=== PATIENT | female | born 1980 | race Caucasian/White ===

== ENCOUNTER 2017-09-26 18:06 | Emergency (ER) | payer SELFPAY ==
[2017-09-26 18:28] VITALS: RESP 20; O2SAT 99
--- NOTE | 2017-09-26 19:32 | C.PDOC ---
History Of Present Illness 37 year old female, with no significant past medical history, presents to the ED for evaluation of left lower quadrant abdominal pain which began yesterday. Patient states her pain is intermittent and feels like a "tight" and "squeezing " sensation. She states her last menstrual period was 11/3 and her at-home test was positive. Patient reports slight nausea but denies vomiting. Patient also denies vaginal bleeding vaginal discharge, dysuria, hematuria, and urinary frequency at this time. Time Seen by Provider: 09/26/17 18:56 Chief Complaint (Nursing): Abdominal Pain History Per: Patient History/Exam Limitations: no limitations Onset/Duration Of Symptoms: Hrs, Intermittent Episodes Current Symptoms Are (Timing): Still Present Location Of Pain/Discomfort: LLQ Radiation Of Pain To:: None Quality Of Discomfort: "Pain" Associated Symptoms: Nausea. denies: Vomiting, Urinary Symptoms Additional History Per: Patient Abnormal Vaginal Bleeding: No : 2 Para: 1 Past Medical History Reviewed: Historical Data, Nursing Documentation, Vital Signs Vital Signs: Last Vital Signs Temp 97.8 F 09/26/17 18:22 Pulse 101 H 09/26/17 18:22 Resp 20 09/26/17 18:22 BP Pulse Ox 99 09/26/17 21:10 - Medical History PMH: No Chronic Diseases Surgical History: No Surg Hx Family History: States: Unknown Family Hx - Social History Hx Alcohol Use: No Hx Substance Use: No - Immunization History Hx Tetanus Toxoid Vaccination: No Hx Influenza Vaccination: No Hx Pneumococcal Vaccination: No Review Of Systems Gastrointestinal: Positive for: Nausea, Abdominal Pain (left lower quadrant ). Negative for: Vomiting Genitourinary: Negative for: Dysuria, Frequency, Hematuria, Vaginal Discharge, Vaginal Bleeding Physical Exam - Physical Exam Appears: Non-toxic, No Acute Distress Skin: Normal Color, Warm, Dry Head: Atraumatic, Normacephalic Eye(s): bilateral: Normal Inspection Oral Mucosa: Moist Neck: Supple Chest: Symmetrical, No Deformity, No Tenderness Cardiovascular: Rhythm Regular, No Murmur Respiratory: Normal Breath Sounds, No Rales, No Rhonchi, No Wheezing Gastrointestinal/Abdominal: Soft, Tenderness (mild, to left lower quadrant on palpation ), No Guarding, No Rebound Extremity: Normal ROM, Capillary Refill (less than 2 seconds ) Neurological/Psych: Oriented x3, Normal Speech, Normal Cognition Gait: Steady ED Course And Treatment - Laboratory Results Result Diagrams: 09/26/17 19:38 09/26/17 19:21 Lab Interpretation: No Acute Changes (HCG 25768.0) O2 Sat by Pulse Oximetry: 99 (on RA) Pulse Ox Interpretation: Normal - CT Scan/US US first Trimester Other Rad Studies (CT/US): Interpreted By Me, Read By Radiologist, Radiology Report Reviewed CT/US Interpretation: EXAM: US First Trimester, Transabdominal. CLINICAL HISTORY: 37 years old, female; Pain; complicated by abdominal or pelvic pain; Lower; First. trimester; Gestational age or lmp: 11-3 -17; ; Additional info: Llq pain. TECHNIQUE: Real-time transabdominal obstetrical ultrasound of the maternal pelvis and a first trimester. with image documentation. COMPARISON: No relevant prior studies available. FINDINGS: Gestation: Gestational sac. Yolk sac. No pole. Mean sac diameter of 1.18 cm, correlating with. gestational age of 5 weeks 2 days. Uterus/cervix: 1.5 x 1.1 x 1.5 cm uterine mass. No subchorionic hemorrhage. No cervical dilatation. or effacement. Nabothian cysts. Ovaries: RIGHT ovary: Normal. LEFT ovary: Probable 1.7 x 1.4 x 1.3 cm corpus luteal cyst. No. adnexal masses. Free fluid: No significant free fluid. IMPRESSION: 1. Intrauterine , of uncertain viability. Recommend followup. 2. Probable fibroid. 3. Incidental/non-acute findings are described above. US , transvaginal Other Rad Studies (CT/US): Interpreted By Me, Read By Radiologist, Radiology Report Reviewed CT/US Interpretation: EXAM: US First Trimester, Transabdominal. CLINICAL HISTORY: 37 years old, female; Pain; complicated by abdominal or pelvic pain; Lower; First. trimester; Gestational age or lmp: 11-3 -17; ; Additional info: Llq pain. TECHNIQUE: Real-time transabdominal obstetrical ultrasound of the maternal pelvis and a first trimester. with image documentation. COMPARISON: No relevant prior studies available. FINDINGS: Gestation: Gestational sac. Yolk sac. No pole. Mean sac diameter of 1.18 cm, correlating with. gestational age of 5 weeks 2 days. Uterus/cervix: 1.5 x 1.1 x 1.5 cm uterine mass. No subchorionic hemorrhage. No cervical dilatation. or effacement. Nabothian cysts. Ovaries: RIGHT ovary: Normal. LEFT ovary: Probable 1.7 x 1.4 x 1.3 cm corpus luteal cyst. No. adnexal masses. Free fluid: No significant free fluid. IMPRESSION: 1. Intrauterine , of uncertain viability. Recommend followup. 2. Probable fibroid. 3. Incidental/non-acute findings are described above. Progress Note: Bloodwork, Urinalysis, Pelvic Ultrasound ordered and reviewed. Reevaluation Time: 21:14 Reassessment Condition: Improved Disposition Counseled Patient/Family Regarding: Studies Performed, Diagnosis, Need For Followup - Disposition Referrals: [facility] [Outside] [facility] [Outside] Disposition: HOME/ ROUTINE Disposition Time: 21:20 Condition: STABLE Instructions: (ED), Ovarian Cyst (ED) Forms: [employer] (French) Print Language: SETS[place] - Clinical Impression Clinical Impression: Early stage of , Corpus luteum cyst of left ovary - Scribe Statement The provider has reviewed the documentation as recorded by the Scribe (Rosa Castaneda) Provider Attestation: All medical record entries made by the Scribe were at my direction and personally dictated by me. I have reviewed the chart and agree that the record accurately reflects my personal performance of the history, physical exam, medical decision making, and the department course for this patient. I have also personally directed, reviewed, and agree with the discharge instructions and disposition.
[2017-09-26 19:36] LABS: RBC URINE 1 /hpf (0-3); URINE BILIRUBIN NEGATIVE (NEGATIVE); URINE BLOOD NEGATIVE (NEGATIVE); URINE COLOR Yellow (YELLOW); URINE GLUCOSE (UA) NORMAL (Normal); URINE KETONE NEGATIVE (NEGATIVE); URINE LEUKOCYTE ESTERASE TRACE Leu/uL (Negative); URINE PROTEIN NEGATIVE (NEGATIVE); URINE UROBILINOGEN NORMAL mg/dL (0.2-1.0); WBC URINE 2 /hpf (0-5)
[2017-09-26 19:43] LABS: ALB/GLOB RATIO 1.4 (1.0-2.1); ALKALINE PHOSPHATASE 71 U/L (38-126); ALT/SGPT 39 U/L (9-52); AST/SGOT 19 U/L (14-36); BILIRUBIN,TOTAL 0.3 mg/dL (0.2-1.3); BLOOD UREA NITROGEN 13 mg/dL (7-17); CALCIUM 8.5 mg/dl (8.6-10.4); CARBON DIOXIDE 27 mmol/L (22-30); CHLORIDE 102 mmol/L (98-107); GFR AFRICAN-AMERICAN > 60; GLUCOSE,RANDOM 92 mg/dL (65-105); POTASSIUM 4.3 mmol/L (3.6-5.2); SODIUM 138 mmol/L (132-148); TOTAL PROTEIN 7.4 g/dL (6.3-8.3)
[2017-09-26 19:47] LABS: BASO # 0.1 K/uL (0.0-0.2); BASO % 0.8 % (0.0-2.0); EOS # 0.2 K/uL (0.0-0.7); EOS % 1.4 % (0.0-4.0); HEMATOCRIT 36.1 % (34.0-47.0); LYMPH # 4.1 K/uL (1.0-4.3); MEAN CELL VOLUME 90.9 fL (81.0-99.0); MEAN CORPUSCULAR HEMOGLOBIN 29.8 pg (27.0-31.0); MEAN CORPUSCULAR HGB CONC 32.8 g/dL (33.0-37.0); MEAN PLATELET VOLUME 8.4 fL (7.2-11.7); MONO # 0.6 K/uL (0.0-0.8); MONO % 5.6 % (0.0-10.0); RED CELL DISTRIBUTION WIDTH 13.5 % (11.5-14.5); WHITE BLOOD COUNT 11.2 K/uL (4.8-10.8)
--- NOTE | 2017-09-26 21:05 | US ---
EXAM: US First Trimester, Transabdominal CLINICAL HISTORY: 37 years old, female; Pain; complicated by abdominal or pelvic pain; Lower; First trimester; Gestational age or lmp: 11-3-17; ; Additional info: Llq pain TECHNIQUE: Real-time transabdominal obstetrical ultrasound of the maternal pelvis and a first trimester with image documentation. COMPARISON: No relevant prior studies available. FINDINGS: Gestation: Gestational sac. Yolk sac. No pole. Mean sac diameter of 1.18 cm, correlating with gestational age of 5 weeks 2 days. Uterus/cervix: 1.5 x 1.1 x 1.5 cm uterine mass. No subchorionic hemorrhage. No cervical dilatation or effacement. Nabothian cysts. Ovaries: RIGHT ovary: Normal. LEFT ovary: Probable 1.7 x 1.4 x 1.3 cm corpus luteal cyst. No adnexal masses. Free fluid: No significant free fluid. IMPRESSION: 1. Intrauterine , of uncertain viability. Recommend followup. 2. Probable fibroid. 3. Incidental/non-acute findings are described above. EXAM: US , Transvaginal CLINICAL HISTORY: 37 years old, female; Pain; complicated by abdominal or pelvic pain; Lower; First trimester; Gestational age or lmp: 11-3-17; ; Additional info: Llq pain TECHNIQUE: Real-time transvaginal obstetrical ultrasound of the maternal pelvis and a first trimester with image documentation. Transvaginal imaging was used for better evaluation of the fetus and adnexa. COMPARISON: No relevant prior studies available. FINDINGS: Gestation: Gestational sac. Yolk sac. No pole. Mean sac diameter of 1.18 cm, correlating with gestational age of 5 weeks 2 days. Uterus/cervix: 1.5 x 1.1 x 1.5 cm uterine mass. No subchorionic hemorrhage. No cervical dilatation or effacement. Nabothian cysts. Ovaries: RIGHT ovary: Normal. LEFT ovary: Probable 1.7 x 1.4 x 1.3 cm corpus luteal cyst. No adnexal masses. Free fluid: No significant free fluid.
[2017-09-26 21:32] VITALS: BP 130/80; PULSE 100; TEMP 98
== END 2017-09-26 21:32 | disposition home or self-care (01) ==
LOC: C.ER 18:06
DX: O34.81 Maternal care for other abnormalities of pelvic organs, first trimester (principal); N83.12 Corpus luteum cyst of left ovary; Z3A.01 Less than 8 weeks gestation of pregnancy

== ENCOUNTER 2018-05-20 15:10 | Inpatient (IN) | payer OTHER ==
[2018-05-20 17:16] LABS: BASO # 0.1 K/uL (0.0-0.2); BASO % 0.5 % (0.0-2.0); EOS # 0.1 K/uL (0.0-0.7); EOS % 0.6 % (0.0-4.0); LYMPH # 2.8 K/uL (1.0-4.3); LYMPH % 28.5 % (20.0-40.0); MEAN CELL VOLUME 89.9 fL (81.0-99.0); MEAN CORPUSCULAR HEMOGLOBIN 30.7 pg (27.0-31.0); MEAN CORPUSCULAR HGB CONC 34.2 g/dL (33.0-37.0); MEAN PLATELET VOLUME 10.7 fL (7.2-11.7); MONO # 0.6 K/uL (0.0-0.8); MONO % 5.8 % (0.0-10.0); NEUT # 6.3 K/uL (1.8-7.0); NEUT % 64.6 % (50.0-75.0); RBC 3.91 Mil/uL (3.80-5.20); RED CELL DISTRIBUTION WIDTH 15.2 % (11.5-14.5); WHITE BLOOD COUNT 9.7 K/uL (4.8-10.8)
[2018-05-20 17:28] LABS: ALB/GLOB RATIO 1.1 (1.0-2.1); ALBUMIN 3.8 g/dL (3.5-5.0); ALT/SGPT 18 U/L (9-52); AST/SGOT 20 U/L (14-36); BILIRUBIN,DIRECT 0.3 mg/dL (0.0-0.4); BLOOD UREA NITROGEN 14 mg/dL (7-17); CALCIUM 9.2 mg/dl (8.6-10.4); GFR AFRICAN-AMERICAN > 60; GFR NON-AFRICAN AMERICAN > 60; URIC ACID 4.9 mg/dL (2.2-7.5)
[2018-05-20 17:41] LABS: PROTHROMBIN TIME 11.1 SECONDS (9.7-12.2)
[2018-05-20 17:42] LABS: SQUAMOUS EPITHIAL 4 /hpf (0-5); URINE BACTERIA RARE (<OCC); URINE BILIRUBIN NEGATIVE (NEGATIVE); URINE BLOOD NEGATIVE (NEGATIVE); URINE CLARITY Hazy (Clear); URINE COLOR Yellow (YELLOW); URINE GLUCOSE (UA) NORMAL (Normal); URINE LEUKOCYTE ESTERASE NEG Leu/uL (Negative); URINE PROTEIN 1+ mg/dL (NEGATIVE); URINE UROBILINOGEN NORMAL mg/dL (0.2-1.0)
--- NOTE | 2018-05-20 17:50 | OBHP ---
Datetime: 05/20/2018 16:32 IP Adm Impression: Term, intrauterine ; No Active Labor; Intact Membranes IP Admit Plan: Observation/Evaluation Admit Comment, IP Provider: 38 yo female with an IUP at 39 /7 weeks Sent from clinic with Diagnosis of Elevated BP and to R/O Preeclampsia, AMA NST reactive/Ocassional contractions and mild Unfavorable cervix BP's in here bet 130's/High 80's to 140's to 90's. Denies CABEZAS, BV or EP PIH labs ordered as well as admitting labs Will admit for IOL and Delivery D/W patient and her the possible Preeclampsia findings with need for delivery Also discussed possible need for Magnesium Sulfate for seizure prophylaxis and verbalized understa nding. See Orders Pelvic Type - PN: Adequate Extremities - PN: Abnormal Abdomen - PN: Normal Back - PN: Normal Breast - PN: Not Done Lungs - PN: Normal Heart - PN: Normal Thyroid - PN: Normal Neurologic - PN: Normal HEENT - PN: Normal General - PN: Normal Presentation-Admit: Vertex FHR - Baseline A Provider: 130 Membranes, Provider: Intact Contraction Comments Provider: Ocassional Comments, ACOG Physical Exam: +2/4 pitting Edema DTR's +2/4 bilaterally Gestation - Est Wks by US: 39 3/7 EGA AdmitDate IP: 39.3 IP Chief Complaint: Uterine contractions; Signs/Symptoms Gestational HTN NICHD Variability Prov Fetus A: Moderate 6-25bpm NICHD Accel Fetus A IP Provider: 10X10 FHR Category Provider Fetus A: Category I NICHD Decel Fetus A IP Provider: None Dilatation, Provider: 1 Effacement, Provider: 50 Station, Provider: floating Genitourinary Exam: Normal DTRs - PN: Normal
--- NOTE | 2018-05-20 18:13 | OBADHP ---
Datetime: 05/20/2018 17:58 Admit Comment, IP Provider: 38 yo female with an IUP at 39 /7 weeks Sent from clinic with Diagnosis of Elevated BP and to R/O Preeclampsia, AMA BP's here bet 130's/80's and 140's / 90's. Denies CABEZAS, BV or EP. DTR's WNL PIH lab ordered as well as admitting labs NST reactive/Ocassional contractions and mild Unfavorable cervix Discussed with patient the suspicion for preeclampsia and it consequences and recomendation for de livery. Will admit and start Cervidil for induction of labor Anticipate vaginal delivery Discussed with patient and her Partner the POC including the possibility of requiring Magnesium Benson lfate for Seizure prophylaxix and they both verbalized understanding. Pelvic Type - PN: Adequate Extremities - PN: Abnormal Abdomen - PN: Normal Back - PN: Normal Breast - PN: Not Done Lungs - PN: Normal Heart - PN: Normal Thyroid - PN: Normal Neurologic - PN: Normal HEENT - PN: Normal General - PN: Normal Presentation-Admit: Vertex Membranes, Provider: Intact Contraction Comments Provider: Irregular Gestation - Est Wks by US: 39 3/7 Vital Signs Provider: Reviewed IP Chief Complaint: Uterine contractions; Signs/Symptoms Gestational HTN Dilatation, Provider: 1 Effacement, Provider: 50 Station, Provider: flt Genitourinary Exam: Normal DTRs - PN: Normal EGA AdmitDate IP: 39.3 IP Adm Impression: Term, intrauterine ; Intact Membranes IP Admit Plan: Admit to unit; Initiate labor protocol Datetime: 05/20/2018 16:32 FHR - Baseline A Provider: 130 Comments, ACOG Physical Exam: +2/4 pitting Edema DTR's +2/4 bilaterally IP Hx Assessment: Records Reviewes NICHD Variability Prov Fetus A: Moderate 6-25bpm NICHD Accel Fetus A IP Provider: 10X10 FHR Category Provider Fetus A: Category I NICHD Decel Fetus A IP Provider: None
[2018-05-20] MEDS ORDERED: Lactated Ringer's 1,000 ML IV SCH (18:45)
[2018-05-20] MEDS: Lactated Ringer's 1,000 ML IV SCH (19:00)
[2018-05-21] MEDS: Nalbuphine HCL 10 mg/ml Ampule IVP SCH ×2 (00:55→04:55)
[2018-05-21] MEDS ORDERED: Nalbuphine HCL 10 mg/ml Ampule ONE (00:56)
[2018-05-21] MEDS: Lactated Ringer's 1,000 ML IV SCH (03:00)
--- NOTE | 2018-05-21 10:39 | OBPN ---
Datetime: 05/21/2018 10:16 IP Progress Plan Other: Cervical ripening IP Progress Impression: Normal progression of labor IP Procedures: Sterile Vag Exam IP Progress Plan: Continue present management; Augmentation; Anticipate Vaginal Delivery Membranes, Provider: Intact Contraction Comments Provider: 1-2 IP Progress Note Comment: Patient received in LDR#1, seen and examined at 0915 hours. Patient in goo d spiritis. Reports (+)FM; denies pain of contracitons, pain scale 2/10. Cervical exam: as above; posterior, medium consistency. Assessment: 38 y.o. P1031, 39w 4d, S/P cervidil x 1 with good response. Previous vag del 18 years ago, 8 14 lbs. Discussed with patient continued cervical ripening, and possible pitocin. Patient is receptive to epidural for pain relief. It was also explained to patient possibility of secti on if indicated. Patient expressed an understanding and agrees; no questions offered. Category 1 tra cing. Michaeln is clinically stable. Plan: 1) Patient may shower 2) Cytotec 25 micrograms p.o. x 1 3) Re-assess in 4 hours 4) Epidural, upon request 5) Anticipate vaginal delivery Dilatation, Provider: 3 Effacement, Provider: 50 Station, Provider: -3 Datetime: 05/20/2018 17:58 Gestation - Est Wks by US: 39 3/7 Presentation-Admit: Vertex Vital Signs Provider: Reviewed Datetime: 05/20/2018 16:32 FHR - Baseline A Provider: 130 NICHD Accel Fetus A IP Provider: 10X10 FHR Category Provider Fetus A: Category I NICHD Variability Prov Fetus A: Moderate 6-25bpm NICHD Decel Fetus A IP Provider: None
[2018-05-21] MEDS ORDERED: Bupivacaine HCl/FentaNYL Cit 100 ML EPI ONE ×2 (13:30→21:04)
[2018-05-21] MEDS ORDERED: Oxytocin 30 UNIT 30 UNITS/500 ML BAG IV ONE (15:23)
[2018-05-21] MEDS ORDERED: Oxytocin 30 UNIT 30 UNITS/500 ML BAG IV SCH (15:30)
[2018-05-22] MEDS ORDERED: Sodium Citrate/Citric Acid 15 ml Sol PO ONE (03:00)
[2018-05-22] MEDS ORDERED: Oxytocin 20 units in LR 2,000 ML IV ONE (03:09)
[2018-05-22] MEDS ORDERED: cefOXitin IV 2 gm in Saline 2 GM/50 ML BAG IVPB ONE ×2 (03:10→11:57)
[2018-05-22] MEDS: cefOXitin IV 2 gm in Dextrose 2 GM/50 ML BAG IVPB SCH ×3 (03:30→20:04)
[2018-05-22] MEDS ORDERED: Oxytocin 10 Units/ml Inj ONE (03:38)
--- NOTE | 2018-05-22 03:51 | OBPN ---
Datetime: 05/22/2018 03:33 Membranes, Provider: Intact Contraction Comments Provider: 1-2 FHR - Baseline A Provider: 150 Gestation - Est Wks by US: 39w 5d Presentation-Admit: Vertex IP Progress Note Comment: Notified by R.N. of decreased variability on FHR tracing. Patient is S/P 1 Ltre D5Ns. Pavan was evaluated at 0231 hours: received in bed, in right lateral position. Denies he adaches, blurred vision Cervical exam: as above. Pitocin = 8 mUnits Assessment: 38 y.o. P1021, 39w 5d, IOL for elevatied BP: no stigmata of pre-eclampsia. Category I I tracing which improved to Category 1 with scalp stimulation, (+) accelerations; improved variabilit y. This was short-lived. To tihs end, patient counseled on concern re: well-being. Also, arrest of cervical dilatation at 6 cm. To this end, abdominal delivery is recommended. Patient expressed an understanding and agrees. R/B/C discussed; patient's questions were answered. Consents signed, dated , witnessed and placed in chart. Patient is clinically stable. Plan: 1) Mefoxin 2) Abdominal prep and shave 3) Notify anesthesia 4) Notify peds 5) family preservation officer to O.R. FHR Category Provider Fetus A: Category II NICHD Variability Prov Fetus A: Minimal - Undetectable to <5bpm Dilatation, Provider: 6-7 Effacement, Provider: 50 Station, Provider: -3 NICHD Decel Fetus A IP Provider: None Datetime: 05/21/2018 22:48 IP Progress Impression: Normal progression of labor IP Procedures: Sterile Vag Exam IP Progress Plan: Continue present management; Augmentation Vital Signs Provider: Reviewed Vital Signs Provider Details: Labile BPs noted; as well as mildy elevated HR NICHD Accel Fetus A IP Provider: 15X15
[2018-05-22] MEDS ORDERED: Lidocaine 2% MPF (5 ml) Inj ONE ×2 (04:02→04:13)
[2018-05-22] MEDS ORDERED: Morphine 1 mg/ml preservative-free Inj(Duramorph) ONE (04:42)
--- NOTE | 2018-05-22 06:12 | PCM.SURG1 ---
Surgeon's Initial Post Op Note - Surgeon's Notes Surgeon: Melina Garcia MD Press Worker Helper: Jaron Hampton MD Type of Anesthesia: Spinal Anesthesia Administered By: Manolo Cotton DO Pre-Operative Diagnosis: 39 weeks 4 days, non reassuring heart tracing, arrest of cervical dilatation at 6 cm; elevated BPs, advanced maternal age. Operative Findings: Live male infant, ROT, weight 9lb, 's 6/9; cord pH - 6.98. Normal uterus; normal fallopian tubes and ovaries, bilaterally. Right anterolateral sessile myoma 3 x 3 x 3 cm. Post-Operative Diagnosis: Same; leiomyoma Operation Performed: Primary LTCS Specimen/Specimens Removed: Placenta Estimated Blood Loss: EBL {In ML}: 800 (U.O. 500 mL; IVFs 2,500 mL LR, 1st litre with 40 units pitocin. Hemabate 250 micrograms also administered) Blood Products Given: N/A Drains Used: No Drains Post-Op Condition: Good Date of Surgery/Procedure: 05/22/18 Time of Surgery/Procedure: 06:18
[2018-05-22] MEDS ORDERED: DiphenhydrAMINE 50 mg/ml Inj IVP PRN (06:18)
[2018-05-22] MEDS ORDERED: HYDROmorphone 0.5 mg/0.5 ml ISec IVP PRN (06:18)
[2018-05-22] MEDS ORDERED: Oxycodone/Acetaminophen 5/325 mg Tab PO PRN (06:19)
--- NOTE | 2018-05-22 06:34 | OBDS ---
DELIVERY PERSONNEL Delivery Doctor: Amie Garcia MD Scrub Nurse: Macrina Heath Tape Sewer: Mery Velasco RN Anesthesiologist: Dr Cotton MATERNAL INFORMATION Delivery Anesthesia: Spinal Estimated Blood Loss (ml): 800 Placenta Cultured: Yes Provider Comments: Primary LTCS with atraumatic delivery of live male infant, weight 9lb, ROT positi on, 's 6/9. Incidental finding of righ tanterolateral sessile myoma, 3 x 3 x 3 cm. Patient tolerated procedure well. Transferred to RR in stable. ccondition. Infant to well baby keyonna sery - also in stable. condition EBL 800 mL U.O. 450 mL IVFs 2, 500 mL LR LABOR SUMMARY EDC: 05/24/2018 00:00 No. Babies in Womb: 1 Labor Anesthesia: Epidural LABOR INFORMATION Reason for Induction: Other Reason for Induction Other: elevated BP Onset of Labor: 05/21/2018 22:35 Cervical Ripening Agents: Cervidil (Annotations: removed) Oxytocin: Augmentation Group B Beta Strep: Negative Steroids Given: None Reason Steroids Not Administered: Not Applicable STAGES OF LABOR Stage 3 hrs: 0 Stage 3 min: 1 Total Time in Labor hrs: 6 Total Time in Labor min: 19 CSECTION DELIVERY Primary Indication: Nonreassuring Status Other Primary Indication: elevated BP Secondary Indication: arrest of cervical dialation CSection Urgency: Non Elective CSection Incidence: Primary Labor: Labor Elective: Nonelective CSection Incision: Lower Uterine Transverse BABY A INFORMATION Delivery Date/Time: 05/22/2018 04:53 Method of Delivery: Born in Route : No : N/A Forceps: N/A Vacuum Extraction: N/A Shoulder Dystocia : No SHOULDER DYSTOCIA BABY A Infant Delivery Date/Time: 05/22/2018 04:53 PRESENTATION/POSITION BABY A Presentation: Cephalic Cephalic Presentation: Vertex Vertex Position: Left Occipital Anterior Breech Presentation: N/A PLACENTA INFORMATION BABY A Placenta Delivery Time : 05/22/2018 04:54 Placenta Method of Delivery: Manual Removal Placenta Status: Delivered SCORES BABY A Heart Rate 1 min: >100 bpm Resp Effort 1 min: Slow, Irregular Reflex Irritability 1 min: Grimace Muscle Tone 1 min: Some Flexion of Extremities Color 1 min: Body [place], Extremities Blue Resuscitation Effort 1 min: Tactile Stimulation SCORE 1 MIN: 6 Heart Rate 5 min: >100 bpm Resp Effort 5 min: Good Cry Reflex Irritability 5 min: Cough or Sneeze or Pulls Away Muscle Tone 5 min: Active Motion Color 5 min: Body [place], Extremities Blue Resuscitation Effort 5 min: N/A SCORE 5 MIN: 9 INFANT INFORMATION BABY A Gestational Age at Delivery: 39.5 Gestational Status: Term Outcome : Liveborn Condition : Stable Sex: Male IDENTIFICATION/MEDS BABY A ID Band Number: [id number] ID Band Location: Left Leg; Left Arm Sensor Applied: Yes Sensor Number: [id number] Sensor Location : Cord Clamp Vitamin K Given : Not Given Erythromycin Given: Not Given WEIGHT/LENGTH BABY A Infant Birthweight (gms): 4080 Weight (lb): 9 Infant Weight (oz): 0 Infant Length Inches: 20.50 Infant Length cms: 52.1 CORD INFORMATION BABY A No. Cord Vessels: 3 Cord Blood Taken: Yes Infant Suction: Mouth; Nose ASSESSMENT BABY A Complications: Decreased Variability Physical Findings at Delivery: Within Normal Limits Infant Respirations: Appears Normal [employer] Coordinator/ALS Called : No Infant Care By: Shannan Gonzalez RN Transferred To: Remains with Mother RESUSCITATION BABY A Resuscitation Effort: PPV/NCPAP
[2018-05-22 09:02] LABS: HEMOGLOBIN 11.6 g/dL (11.0-16.0); MEAN CELL VOLUME 90.9 fL (81.0-99.0); MEAN CORPUSCULAR HEMOGLOBIN 30.6 pg (27.0-31.0); MEAN CORPUSCULAR HGB CONC 33.7 g/dL (33.0-37.0); MEAN PLATELET VOLUME 10.2 fL (7.2-11.7); RBC 3.8 Mil/uL (3.80-5.20); RED CELL DISTRIBUTION WIDTH 15.2 % (11.5-14.5)
[2018-05-22 09:06] LABS: WHITE BLOOD COUNT 15.4 K/uL (4.8-10.8)
[2018-05-22 09:11] LABS: PROTHROMBIN TIME 10.8 SECONDS (9.7-12.2)
[2018-05-22 09:33] LABS: ALB/GLOB RATIO 1.1 (1.0-2.1); ALBUMIN 3.2 g/dL (3.5-5.0); ALT/SGPT 20 U/L (9-52); AST/SGOT 23 U/L (14-36); BILIRUBIN,DIRECT 0.2 mg/dL (0.0-0.4); BLOOD UREA NITROGEN 8 mg/dL (7-17); CALCIUM 9.2 mg/dl (8.6-10.4); GFR AFRICAN-AMERICAN > 60; GFR NON-AFRICAN AMERICAN > 60
[2018-05-22] MEDS: Simethicone 80 mg Chewtab PO SCH ×2 (17:12→22:05)
--- NOTE | 2018-05-22 17:46 | OP ---
Copied To: Melina Garica MD Attending MD: Melina Garcia MD PROCEDURE DATE: 05/22/2018 PREOPERATIVE DIAGNOSES: A 39 weeks' 4 days gestation, nonreassuring heart rate tracing, arrest of cervical dilatation at 6 cm, elevated blood pressure and advanced maternal age. POSTOPERATIVE DIAGNOSES: A 39 weeks' 4 days gestation, nonreassuring heart rate tracing, arrest of cervical dilatation at 6 cm, elevated blood pressure and advanced maternal age with right anterolateral leiomyoma. SURGEON: Melina Garcia MD DE ICER KIT ASSEMBLER: Jaron Hampton MD ANESTHESIOLOGIST: Manolo Cotton DO ANESTHESIA TYPE: Spinal. OPERATIVE FINDINGS: Live male infant, right occipital transverse position, weight 9 pounds. Apgars of 6 and 9 at 1 and 5 minutes, respectively. There is a normal uterus, normal fallopian tubes, and ovaries bilaterally. There is a right anterolateral sessile myoma, 3 x 3 x 3 cm. OPERATION PERFORMED: Primary low transverse Caesarean section. ESTIMATED BLOOD LOSS: 800 mL. URINE OUTPUT: 450 mL. INTRAVENOUS FLUIDS: 2,500 mL of lactated Ringer's, the first liter had 40 units of Pitocin. Hemabate 250 micrograms was also administered intramuscularly. BLOOD PRODUCTS GIVEN: None. COMPLICATIONS: None. DESCRIPTION OF PROCEDURE: The patient was taken to the operating room after having obtained informed consent for the anticipated procedure. This included a discussion of potential risks, or complications including but not limited to infection requiring continued antibiotics, hemorrhage requiring blood transfusion, repair of any damage to internal organs, and possible Caesarean hysterectomy. The patient expressed an understanding; her questions were answered. Consents were signed, dated, witnessed, and placed in the chart. The patient received Mefoxin 2 grams prior to being escorted to the operating room. In the operating room, attempts to assure anesthesia using epidural were unsuccessful and the patient subsequently underwent spinal. This was done while she was sitting on the operating room table. She was immediately repositioned into supine manner. The abdomen was prepped and she was subsequently draped in the usual sterile fashion. After assuring an adequate level of anesthesia, a Pfannenstiel incision was made on the skin using a scalpel. The incision was carried down through the subcutaneous tissues using the Bovie electrocautery. The fascia was identified. It was nicked in the midline and incision was extended bilaterally also using Bovie electrocautery. The rectus muscle was dissected off the overlying fascia. The rectus muscle was in the midline by blunt dissection and the abdomen was entered via blunt dissection. The vesicouterine reflection was identified and the bladder flap was created. A transverse incision was then made on the lower uterine segment. Amniotomy was performed and copious amount of clear amniotic fluid was obtained. Delivery of the ensued with the findings as above. Once on the operative field, the 's mouth and nose were bulb suctioned as the umbilical cord was doubly clamped and cut. The infant was handed off the operative field to the development trainer in attendance - 's findings as above. A segment of umbilical cord was obtained for cord pH analysis, the results as above. By manual extraction, the placenta was delivered. It was grossly intact with three vessels present in the cord. The uterus was exteriorized for closure. This was done in two layers using 0 Vicryl. The first layer was in a running interlocking fashion. The second layer was in a horizontal imbricating fashion. Attention was then directed to the posterior aspect of the uterus and copious irrigation was performed. Findings were as above. Attention was then redirected to the anterior aspect of the uterus. It was noted to be hemostatic. The bladder flap was reapproximated using 2-0 chromic in a running fashion. The uterus was then returned to the abdominal cavity. The paracolic gutters were cleared of all debris. The parietal peritoneum was reapproximated using 2-0 chromic in a running fashion. The muscle was reapproximated using 2-0 chromic in a running fashion. The fascia was reapproximated using 1-0 Vicryl in a running fashion. The subcutaneous tissue was reapproximated using plain catgut in a running fashion. The skin was reapproximated using 4-0 Monocryl in a subcuticular fashion. Steri-Strips were applied and a pressure dressing was applied. The patient was positioned in a frog-leg manner and uterine exploration was performed. The uterus was evacuated of additional blood and clots. Uterus was contracted, at the level of the umbilicus. The patient tolerated the procedure well. She was transferred to [facility] in stable condition. was transferred to [facility], also in stable condition. Dr. Jaron Hampton was present throughout the entire procedure from beginning to end. His presence was necessary and his expertise due to the followin. To assure adequate visualization of this operative field at all times. 2. To assure the safe and atraumatic delivery of the infant. 3. To assure hemostasis throughout the procedure. Melina Manan Garcia MD MTDClaudia
[2018-05-23] MEDS: cefOXitin IV 2 gm in Dextrose 2 GM/50 ML BAG IVPB SCH (06:34)
[2018-05-23 08:21] LABS: MEAN CELL VOLUME 90.2 fL (81.0-99.0); MEAN CORPUSCULAR HEMOGLOBIN 30.8 pg (27.0-31.0); MEAN CORPUSCULAR HGB CONC 34.1 g/dL (33.0-37.0); MEAN PLATELET VOLUME 10.2 fL (7.2-11.7); RBC 3.25 Mil/uL (3.80-5.20); RED CELL DISTRIBUTION WIDTH 15.6 % (11.5-14.5); WHITE BLOOD COUNT 15.1 K/uL (4.8-10.8)
[2018-05-23] MEDS: Prenatal Multivit/Folic Acid/Iron Tab PO SCH (11:02)
[2018-05-23] MEDS: Simethicone 80 mg Chewtab PO SCH ×4 (11:02→21:56)
--- NOTE | 2018-05-23 17:46 | OBPPN ---
Datetime: 05/23/2018 16:52 PP Pain Prov: Within normal limits PP Nausea Prov: Denies PP Flatus Prov: Yes PP BM Prov: No PP Breasts Prov: Normal PP Heart Prov: Normal PP Lungs Prov: Normal PP Abdomen/Uterus Prov: Normal PP Lochia Prov: Normal PP Vulva/Perineum Prov: Not Done PP CVA Tenderness Prov: Normal PP Extremities Prov: Normal PP C/S Incision Prov: Normal PP Progress Prov: Normal PP Comments Phys Exam Prov: Abdomen: Soflty distended. (+) BS. Fundus firm, mobile. at umbilicus. Dr bright removed; incision with subcuticular closing - clean, dry and intact. Mild lochia rubra Extremities: bilateral 1+ pedal edema. No ocalf tenderness All other systems reviewed and are negative PP Impression Prov: Normal progression PP Plan Prov: Continue present management PP Progress Note Prov: Patient seen and evaluated earlier in the day; received in room 453, sitting up in chair. Denies dizziness, lightheadedness; nausea or vomiting. Ambulating and voiding without d ifficulty. Bottlefeeding; desires to breastfeed P.E.: as above. WD in NAD. Awake, alert, oriented to time, person and place. Pleasant and coopera tive - POD#1, H/H 29.3, Rh(+) Assessment: POD#1, 38 y.o. , S/P primary LTCS for NRFHRT and arrest of cervical dilattion at 6 cm; incidental finding of right anterolateral leiomyoma. Afebrile, vital signs stable. Returnin g GI and functions. 05/22/18, patient was started in labetalol 200 mg po BID for elevated BPs. BP t his morning and afternoon were low normal. To this end, will discontinue antihypertensive for now and continue to observe. Patient otherwise, clinically stable. Plan: 1) Discontinue labetalol 200 mg p.o. BID 2) Encourage ambulation 3) Continue post op care Vital Signs Provider PP: Reviewed; Within Normal Limits
--- NOTE | 2018-05-23 22:51 | OBPPN ---
Datetime: 05/23/2018 21:25 PP Pain Prov: Within normal limits PP Nausea Prov: Denies PP Flatus Prov: Yes PP BM Prov: Yes PP Breasts Prov: Not Done PP Heart Prov: Abnormal PP Lungs Prov: Normal PP Abdomen/Uterus Prov: Normal PP Lochia Prov: Normal PP Vulva/Perineum Prov: Not Done PP Extremities Prov: Normal PP C/S Incision Prov: Normal PP Comments Phys Exam Prov: Cardiac: sinus tachycardia. normal S1, S2 Lungs: CTA bilaterally Abdomen: Softly distended. (+) Bowel sounds Extremities: bilaterally edematous lower extremties: no calf tenderness PP Progress Note Prov: Notified by R.N., heart rate 122 bpm Patient received in room 453, sitting in chair with FOB. Comfortable. Reports mild abdominal pain from gas, minimal incisional pain. Relieved at passing flatus and having a BM. Denies being anxious, no chest pain or palpitations or shortness of breath P.E.: as above. Assessment: POD#1, 38 y.o. P2012, new onset maternal tachycardia.. Currently afebrile, BP have be en wnl today. Patient is clinically stable. Plan: 1) Medicine consult 2) Continue post management 3) Continue to observe Vital Signs Provider PP: Reviewed Vital Signs Provider Details PP: HR 116 bpm
[2018-05-24] MEDS: Oxycodone/Acetaminophen 5/325 mg Tab PO PRN ×5 (01:01→23:26)
--- NOTE | 2018-05-24 01:39 | CP.PCM.CON ---
<YenikatarzynaChristina MehulSamara - Last Filed: 05/24/18 03:49> History of Present Illness - History of Present Illness History of Present Illness: Consult for Tachycardia Patient is a 38 year old female with no past medical history and is status post cesarian section on 05/22/18. The patient's vitals have been taken every 4 hours post csection and she has been tachycardic. She denies symptoms and states she feels well. She denies chest pain, palpitations, dyspnea, cough, nausea, vomiting, fevers, headaches, dizziness, abdominal pain, dysuria, hematuria, constipation, diarrhea, blood in stool. PMD: none PMHx: denies OBHx: A3 SurgHx: denies except for Csection on 05/22/18 FamHx: Brother-colon cancer SocHx: denies tobacco, alcohol, and drug use Allergies: NKDA Medications: denies Review of Systems - Constitutional Constitutional: absent: Chills, Fever, Headache, Weakness - EENT Ears: absent: Dizziness - Cardiovascular Cardiovascular: Leg Edema, Rapid Heart Rate. absent: Chest Pain, Diaphoresis, Dyspnea, Irregular Heart Rhythm, Lightheadedness - Respiratory Respiratory: absent: Cough, Dyspnea, Hemoptysis - Gastrointestinal Gastrointestinal: absent: Abdominal Pain, Constipation, Diarrhea, Hematemesis, Hematochezia, Melena, Nausea, Vomiting - Genitourinary Genitourinary: absent: Dysuria, Hematuria - Neurological Neurological: absent: Dizziness, Headaches, Weakness - Endocrine Endocrine: Palpitations. absent: Fatigue Past Patient History - Infectious Disease Hx of Infectious Diseases: None - Past Social History Smoking Status: Never Smoked - PSYCHIATRIC Hx Substance Use: No - SURGICAL HISTORY Hx Surgeries: No - ANESTHESIA Hx Anesthesia: No Meds Allergies/Adverse Reactions: Allergies Allergy/AdvReac Type Severity Reaction Status Date / Time No Known Allergies Allergy Unverified 09/26/17 18:28 - Medications Medications: Current Medications Docusate Sodium (Colace) 100 mg PO BID [facility] Last Admin: 05/23/18 18:48 Dose: 100 mg Ferrous Sulfate (Feosol) 325 mg PO DAILY [facility] Last Admin: 05/23/18 11:01 Dose: 325 mg Oxycodone/Acetaminophen (Percocet 5/325 Mg Tab) 1 tab PO Q4H PRN PRN Reason: Pain, moderate (4-7) Stop: 05/25/18 06:20 Last Admin: 05/24/18 01:01 Dose: 1 tab Oxycodone/Acetaminophen (Percocet 5/325 Mg Tab) 2 tab PO Q4H PRN PRN Reason: Pain, severe (8-10) Stop: 05/25/18 06:20 Last Admin: 05/23/18 06:38 Dose: 2 tab Multivit/Folic Acid/Iron () 1 tab PO DAILY [facility] Last Admin: 05/23/18 11:02 Dose: 1 tab Sennosides (Senokot Tab) 17.2 mg PO HS [facility] Last Admin: 05/23/18 21:56 Dose: 17.2 mg Simethicone (Mylicon Chew Tab) 80 mg PO QID [facility] Last Admin: 05/23/18 21:56 Dose: 80 mg Physical Exam - Constitutional Appears: No Acute Distress - Head Exam Head Exam: ATRAUMATIC, NORMAL INSPECTION - Eye Exam Eye Exam: EOMI, Normal appearance - ENT Exam ENT Exam: Mucous Membranes Moist - Respiratory Exam Respiratory Exam: Clear to Auscultation Bilateral, NORMAL BREATHING PATTERN. absent: Rales, Rhonchi, Wheezes, Respiratory Distress - Cardiovascular Exam Cardiovascular Exam: Tachycardia, REGULAR RHYTHM, +S1, +S2 - GI/Abdominal Exam GI & Abdominal Exam: Normal Bowel Sounds, Soft, Tenderness (mild; s/p csection) . absent: Distended, Firm, Mass - Extremities Exam Extremities exam: Positive for: pedal edema (pitting edema extending up to knee b/l), pedal pulses present. Negative for: tenderness - Neurological Exam Neurological exam: Alert, Oriented x3 - Psychiatric Exam Psychiatric exam: Normal Affect, Normal Mood - Skin Skin Exam: Dry, Intact, Normal Color, Warm Results - Vital Signs Recent Vital Signs: Last Vital Signs Temp 99.0 F 05/24/18 00:00 Pulse 110 H 05/24/18 00:00 Resp 20 05/24/18 00:00 BP 142/86 05/24/18 00:00 Pulse Ox 99 05/24/18 00:00 - Labs Result Diagrams: 05/23/18 08:11 05/22/18 08:58 Labs: Laboratory Results - last 24 hr 05/23/18 08:11 WBC 15.1 H RBC 3.25 L Hgb 10.0 L Hct 29.3 L MCV 90.2 MCH 30.8 MCHC 34.1 RDW 15.6 H Plt Count 173 MPV 10.2 Assessment & Plan - Assessment and Plan (Free Text) Assessment: Tachycardia - EKG: sinus tachycardia - Echo: f/u - Venous dopplers b/l: f/u - TSH/Free T4: f/u Lower extremity swelling - Venous dopplers b/l: f/u S/P Cesarian section - Management per OBGYN. <Gildardo Kim P - Last Filed: 05/24/18 06:58> Meds - Medications Medications: Current Medications Acetaminophen (Tylenol 325mg Tab) 650 mg PO Q6 PRN PRN Reason: Pain, moderate (4-7) Docusate Sodium (Colace) 100 mg PO BID [facility] Last Admin: 05/23/18 18:48 Dose: 100 mg Ferrous Sulfate (Feosol) 325 mg PO DAILY [facility] Last Admin: 05/23/18 11:01 Dose: 325 mg Oxycodone/Acetaminophen (Percocet 5/325 Mg Tab) 1 tab PO Q4H PRN PRN Reason: Pain, moderate (4-7) Stop: 05/25/18 06:20 Last Admin: 05/24/18 01:01 Dose: 1 tab Oxycodone/Acetaminophen (Percocet 5/325 Mg Tab) 2 tab PO Q4H PRN PRN Reason: Pain, severe (8-10) Stop: 05/25/18 06:20 Last Admin: 05/23/18 06:38 Dose: 2 tab Multivit/Folic Acid/Iron () 1 tab PO DAILY [facility] Last Admin: 05/23/18 11:02 Dose: 1 tab Sennosides (Senokot Tab) 17.2 mg PO HS [facility] Last Admin: 05/23/18 21:56 Dose: 17.2 mg Simethicone (Mylicon Chew Tab) 80 mg PO QID [facility] Last Admin: 05/23/18 21:56 Dose: 80 mg Results - Vital Signs Recent Vital Signs: Last Vital Signs Temp 99.0 F 05/24/18 00:00 Pulse 110 H 05/24/18 00:00 Resp 20 05/24/18 00:00 BP 142/86 05/24/18 00:00 Pulse Ox 99 05/24/18 00:00 - Labs Result Diagrams: 05/23/18 08:11 05/22/18 08:58 Labs: Laboratory Results - last 24 hr 05/23/18 08:11 WBC 15.1 H RBC 3.25 L Hgb 10.0 L Hct 29.3 L MCV 90.2 MCH 30.8 MCHC 34.1 RDW 15.6 H Plt Count 173 MPV 10.2 Attending/Attestation - Attestation I have personally seen and examined this patient.: Yes I have fully participated in the care of the patient.: Yes I have reviewed all pertinent clinical information: Yes Notes (Text): Assessment * Sinus tachycardia, along with HTN, most likely patient having increased sympathetic response as evidenced by high response to labetalol, patient is asymptomatic except some pain in relation to C section. * Edematous * DD of dvt/pe, post cardiomyopathy, again clinically unlikely due to pt being completely asymptomatic. Plan * Echo, venous doppler for evaluating DD * if test ok can try lower dose of betablocker as patient may be having higher sympathetic response. * Avoid NSAIDS with edema/htn. * See orders for detail.
[2018-05-24] MEDS: Prenatal Multivit/Folic Acid/Iron Tab PO SCH (09:33)
[2018-05-24] MEDS: Simethicone 80 mg Chewtab PO SCH ×4 (09:34→21:19)
[2018-05-24 10:03] LABS: ALT/SGPT 20 U/L (9-52); AST/SGOT 26 U/L (14-36); BLOOD UREA NITROGEN 10 mg/dL (7-17); CALCIUM 8.8 mg/dl (8.6-10.4); GFR AFRICAN-AMERICAN > 60; GFR NON-AFRICAN AMERICAN > 60
[2018-05-24 10:23] LABS: URIC ACID 6.4 mg/dL (2.2-7.5)
--- NOTE | 2018-05-24 11:08 | CP.PCM.PN ---
<Trixie Peck - Last Filed: 05/24/18 18:51> Subjective - Date & Time of Evaluation Date of Evaluation: 05/24/18 Time of Evaluation: 10:35 - Subjective Subjective: Pt examined at bedside with and baby in room. No acute overnight events. Patient reports her legs and feet continue to be swollen. Patient reports she feels well, has no palpitations, chest pain or SOB. Patient reports her post op pain is well controlled with her current medication. Objective - Vital Signs/Intake and Output Vital Signs (last 24 hours): Temp Pulse Resp BP Pulse Ox 97 F L 104 H 20 142/91 H 97 05/24/18 08:18 05/24/18 08:18 05/24/18 08:18 05/24/18 08:18 05/24/18 08:18 - Medications Medications: Current Medications Acetaminophen (Tylenol 325mg Tab) 650 mg PO Q6 PRN PRN Reason: Pain, moderate (4-7) Docusate Sodium (Colace) 100 mg PO BID [facility] Last Admin: 05/24/18 09:33 Dose: 100 mg Ferrous Sulfate (Feosol) 325 mg PO DAILY [facility] Last Admin: 05/24/18 09:33 Dose: 325 mg Labetalol HCl (Trandate) 100 mg PO BID [facility] Oxycodone/Acetaminophen (Percocet 5/325 Mg Tab) 1 tab PO Q4H PRN PRN Reason: Pain, moderate (4-7) Stop: 05/25/18 06:20 Last Admin: 05/24/18 09:34 Dose: 1 tab Oxycodone/Acetaminophen (Percocet 5/325 Mg Tab) 2 tab PO Q4H PRN PRN Reason: Pain, severe (8-10) Stop: 05/25/18 06:20 Last Admin: 05/23/18 06:38 Dose: 2 tab Multivit/Folic Acid/Iron () 1 tab PO DAILY [facility] Last Admin: 05/24/18 09:33 Dose: 1 tab Sennosides (Senokot Tab) 17.2 mg PO HS [facility] Last Admin: 05/23/18 21:56 Dose: 17.2 mg Simethicone (Mylicon Chew Tab) 80 mg PO QID [facility] Last Admin: 05/24/18 09:34 Dose: 80 mg - Labs Labs: 05/23/18 08:11 05/24/18 08:30 PT 10.8 SECONDS (9.7-12.2) 05/22/18 08:58 INR 1.0 05/22/18 08:58 APTT 28 SECONDS (21-34) 05/22/18 08:58 - Constitutional Appears: Non-toxic, No Acute Distress - Head Exam Head Exam: ATRAUMATIC, NORMAL INSPECTION, NORMOCEPHALIC - Eye Exam Eye Exam: EOMI, Normal appearance - ENT Exam ENT Exam: Mucous Membranes Moist - Neck Exam Neck Exam: Full ROM, Normal Inspection - Respiratory Exam Respiratory Exam: Clear to Ausculation Bilateral, NORMAL BREATHING PATTERN. absent: Accessory Muscle Use, Chest Wall Tenderness - Cardiovascular Exam Cardiovascular Exam: Tachycardia, REGULAR RHYTHM, +S1, +S2. absent: Murmur - GI/Abdominal Exam GI & Abdominal Exam: Soft, Normal Bowel Sounds. absent: Distended - Extremities Exam Extremities Exam: Normal Capillary Refill, Pedal Edema. absent: Calf Tenderness - Neurological Exam Neurological Exam: Alert, Awake, Normal Gait, Oriented x3 - Psychiatric Exam Psychiatric exam: Normal Affect, Normal Mood - Skin Skin Exam: Intact, Normal Color, Warm Assessment and Plan - Assessment and Plan (Free Text) Assessment: Consult for 38 year old F with persistent hypertension and tachycardia, s/p c- sect 05/22/18 Hypertension -BP 142/91 -taken off labetalol 200mg IV BID -will resume labetalol at 100mg IV BID -vitals Q4 Tachycardia -HR 104 -f/u LE dopplers -echo 05/24 shows mild/mod tricuspid regurg -Vitals Q4 transaminitis -f/u am labs <Jonny Low H - Last Filed: 05/24/18 19:06> Objective - Vital Signs/Intake and Output Vital Signs (last 24 hours): Temp Pulse Resp BP Pulse Ox 97.9 F 117 H 18 142/82 98 05/24/18 16:00 05/24/18 16:00 05/24/18 16:00 05/24/18 16:00 05/24/18 16:00 - Medications Medications: Current Medications Acetaminophen (Tylenol 325mg Tab) 650 mg PO Q6 PRN PRN Reason: Pain, moderate (4-7) Docusate Sodium (Colace) 100 mg PO BID [facility] Last Admin: 05/24/18 17:59 Dose: 100 mg Ferrous Sulfate (Feosol) 325 mg PO DAILY [facility] Last Admin: 05/24/18 09:35 Dose: 325 mg Labetalol HCl (Trandate) 100 mg PO BID [facility] Last Admin: 05/24/18 17:58 Dose: 100 mg Oxycodone/Acetaminophen (Percocet 5/325 Mg Tab) 1 tab PO Q4H PRN PRN Reason: Pain, moderate (4-7) Stop: 05/25/18 06:20 Last Admin: 05/24/18 18:02 Dose: 1 tab Oxycodone/Acetaminophen (Percocet 5/325 Mg Tab) 2 tab PO Q4H PRN PRN Reason: Pain, severe (8-10) Stop: 05/25/18 06:20 Last Admin: 05/23/18 06:38 Dose: 2 tab Multivit/Folic Acid/Iron () 1 tab PO DAILY [facility] Last Admin: 05/24/18 09:33 Dose: 1 tab Sennosides (Senokot Tab) 17.2 mg PO HS [facility] Last Admin: 05/23/18 21:56 Dose: 17.2 mg Simethicone (Mylicon Chew Tab) 80 mg PO QID [facility] Last Admin: 05/24/18 17:59 Dose: 80 mg - Labs Labs: 05/24/18 11:13 05/24/18 08:30 PT 10.8 SECONDS (9.7-12.2) 05/22/18 08:58 INR 1.0 05/22/18 08:58 APTT 28 SECONDS (21-34) 05/22/18 08:58 Attending/Attestation - Attestation I have personally seen and examined this patient.: Yes I have fully participated in the care of the patient.: Yes I have reviewed all pertinent clinical information, including history, physical exam and plan: Yes Notes (Text): 05/24/18 19:01 Medical consult: Patient was seen and examined by me with the emergency medical service coordinator earlier today. Reviewed the above note by the resident and agree with the above. The patient was not in any acute distress when we came and saw and examined patient today. Medicine was consulted due to the patient having tacycardia as well as HTN. She is S/P C section. Infant is doing well. The patient denied having sigfigant pain she said. Pain is controlled. Also review of recent labwork shes her Hgb is stable as well - it is 10 at this time. She previously was on labetalol 200 BID but this was discontinued since it was felt that this was too much for her. Will try half the dose of this and see how the patient does. We are still pending on 2decho as well as the venous dopplers at this time. The 12 lead EKG was sinus tachycardia in the 110s. Did consider maybe she had some element of eclampsia/pre-eclampsia as she did have some lower extremity edema that she said occured for about 1 month prior. This being said review of labwork doesn't show elevated LFTs. Continue to monitor. She looks very comfortable when I saw and examined This being said if she remains tacycardic then may need work up for PE (however she denies chest pain and denies shortness of breath) thank you Jonny Low
[2018-05-24 11:27] LABS: BASO % 0.2 % (0.0-2.0); EOS # 0.1 K/uL (0.0-0.7); HEMOGLOBIN 10.2 g/dL (11.0-16.0); LYMPH # 2.5 K/uL (1.0-4.3); LYMPH % 18.6 % (20.0-40.0); MEAN CELL VOLUME 91.3 fL (81.0-99.0); MEAN CORPUSCULAR HEMOGLOBIN 30.2 pg (27.0-31.0); MONO # 0.7 K/uL (0.0-0.8); MONO % 5.4 % (0.0-10.0); NEUT # 10.1 K/uL (1.8-7.0); NEUT % 74.8 % (50.0-75.0); RBC 3.4 Mil/uL (3.80-5.20); RED CELL DISTRIBUTION WIDTH 15.5 % (11.5-14.5); WHITE BLOOD COUNT 13.5 K/uL (4.8-10.8)
[2018-05-24 12:24] LABS: SQUAMOUS EPITHIAL 1 /hpf (0-5); URINE BILIRUBIN NEGATIVE (NEGATIVE); URINE BLOOD 1+ (NEGATIVE); URINE CLARITY Clear (Clear); URINE COLOR Yellow (YELLOW); URINE GLUCOSE (UA) NORMAL (Normal); URINE LEUKOCYTE ESTERASE TRACE Leu/uL (Negative); URINE PROTEIN NEGATIVE (NEGATIVE)
--- NOTE | 2018-05-24 13:35 | CARD ---
APPROVED REPORT Date of service: 05/24/2018 EXAM: Two-dimensional and M-mode echocardiogram with Doppler and color Doppler. Other Information Quality : Rhythm : Tachycardia INDICATION POST 2D DIMENSIONS IVSd1.1 (0.7-1.1cm)Aortic Root (2D)2.7 (2.0-3.7cm) LVDd4.5 (3.9-5.9cm)PWd1.0 (0.7-1.1cm) LVDs2.6 (2.5-4.0cm)FS (%) 42.5 % LVEF (%)73.7 (>50%) M-Mode DIMENSIONS RVDd2.15 (2.1-3.2cm)Left Atrium (MM)4.13 (2.5-4.0cm) IVSd0.90 (0.7-1.1cm)Aortic Root3.05 (2.2-3.7cm) LVDd5.28 (4.0-5.6cm)Aortic Cusp Exc.2.08 (1.5-2.0cm) PWd0.80 (0.7-1.1cm)FS (%) 44 % LVDs2.95 (2.0-3.8cm)TAPSE21.03 cm LVEF (%)75 (>50%) Mitral Valve MV E Zjrqrpss904.7cm/sMV A Udwpwvtm06.9cm/sE/A ratio2.8 TDI E/Lateral E'0.0E/Medial E'0.0 Tricuspid Valve TR Peak [id number]/sTR Peak Gr.[id number] LEFT VENTRICLE The left ventricle is normal size. There is normal left ventricular wall thickness. The left ventricular function is normal. The left ventricular ejection fraction is within the normal range. There is normal LV segmental wall motion. The left ventricular diastolic function is normal. Normal left atrial pressure. RIGHT VENTRICLE The right ventricle is normal size. There is normal right ventricular wall thickness. The right ventricular systolic function is normal. ATRIA The left atrium size is normal. The right atrium size is normal. The interatrial septum is intact with no evidence for an atrial septal defect. AORTIC VALVE The aortic valve is normal in structure. No aortic regurgitation is present. MITRAL VALVE The mitral valve is normal in structure. There is no mitral valve regurgitation noted. TRICUSPID VALVE The tricuspid valve is normal in structure. There is mild to moderate tricuspid regurgitation. Right ventricular systolic pressure is estimated at 30-40 mmHg. There is mild pulmonary hypertension. PULMONIC VALVE The pulmonary valve is normal in structure. GREAT VESSELS The aortic root is normal in size. The IVC is normal in size and collapses >50% with inspiration. PERICARDIAL EFFUSION There is no pericardial effusion. <Conclusion> Normal bi-ventricular function. There is mild to moderate tricuspid regurgitation. Right ventricular systolic pressure is mildly elevated estimated - 39 mmHg. This may be normal variant for gestional age. There is no pericardial effusion.
[2018-05-24 14:44] VITALS: RESP 18
[2018-05-24 16:36] VITALS: O2SAT 98
--- NOTE | 2018-05-24 17:27 | OBPPN ---
Datetime: 05/24/2018 11:30 PP Pain Prov: Within normal limits PP Nausea Prov: Denies PP Flatus Prov: Yes PP Breasts Prov: Not Done PP Heart Prov: Normal PP Lungs Prov: Normal PP Abdomen/Uterus Prov: Normal PP Lochia Prov: Normal PP Vulva/Perineum Prov: Normal PP CVA Tenderness Prov: Normal PP Extremities Prov: Normal PP C/S Incision Prov: Normal PP Progress Prov: Normal PP Impression Prov: Normal progression PP Progress Note Prov: POD # 2 S/P Primary C/S without complications Pos-Op mild Tachycardia that worsen at times but patient remained completely asymptomatic. PE nega tive Lochia mild to moderate/ fundua firm and below umbilicus. Denies any Medical Hx Pt was admitted initially for term prgnancy with elevated BP's and Diagnosed with Gestational Hype rtension that did not amount to Dx of PreE. She had no symptoms of PreE and PIH labs were negative After delivery her BP's were OK but then started to increased again and she was started on Labetol ol 200 mg po BID and after few doses her BP was too low and was stopped. Post-Op CBC 10.6/31.2.Rh Positive Internal Medicine was consulted by Dr. Lopez and EKG, Echo, Dopplers ordered as well as repeated CBC. CMP and Thyroid studies EKG revealed NSR with Tachycardia and Echo Negative Other studies were pending at this time Will advance post-op care at this time Encourage po water intake and activity Vital Signs Provider PP: Reviewed Vital Signs Provider Details PP: Persistent mild to moderate tachycardia
[2018-05-25] MEDS: Oxycodone/Acetaminophen 5/325 mg Tab PO PRN (06:15)
--- NOTE | 2018-05-25 07:54 | OBPPN ---
Datetime: 05/25/2018 07:50 PP Pain Prov: Within normal limits PP Nausea Prov: Denies PP Flatus Prov: Yes PP BM Prov: No PP Breasts Prov: Normal PP Heart Prov: Normal PP Lungs Prov: Normal PP Abdomen/Uterus Prov: Normal PP Lochia Prov: Normal PP Vulva/Perineum Prov: Normal PP CVA Tenderness Prov: Normal PP Extremities Prov: Normal PP C/S Incision Prov: Normal PP Progress Prov: Normal PP Impression Prov: Normal progression PP Plan Prov: Continue present management PP Progress Note Prov: pt seen and examiend adn reprots pain controlled with medication. pt is ambul ating, voidng passing flatus, tolerating regular diet. pt denies any fevers, chills, nause, vomiting, cp, sob, bowel or bladder complaints. Pt is breast feeding and denies any feelings of sadness or dep ression. VSS PE: GEN NAD AAO x 3 BREAST: NT, Non engorged b/l CVS:Tachycardic +S1/S2 ABS: Soft, NT, nd , no guarding no rebound tenderness no rigidity, +BS Incision C/d/I healign well FUNDUS: Firm bwelow level of umbilicus VE: minimal lochia, non foul smelling EXT: negative homans sign, no calf tendeness A/P s/p PLTCS POD #3 with tachycardia f/u am labs pain managment encourage breast feedign adn ambulation hydration regualr diet s/p medicine consult appreciate : f/u recs, pending discharge BP: labeteol 100mg BID s/p echo, venous dopper Vital Signs Provider PP: Reviewed Vital Signs Provider Details PP: HR 101-122
--- NOTE | 2018-05-25 07:54 | OBDCSUM ---
Datetime: 05/25/2018 07:52 Discharged to, Provider: Home Follow up at, Provider: Clinic Disch Instr Activity: Normal activity Disch Instr Diet: Regular Discharge Instructions, Provider: Routine instructions given Discharge Diagnosis, Provider: Term Delivered Discharge Time: 05/25/2018 13:00 Follow up in weeks, Provider: 1 Week Disch Referrals: None Contraception discussed, Prov: Yes Disch Activity Restrictions: No sexual activity; Nothing in vagina - Ona, tampons, douche Discharge Comment, Provider: If high blodoprsusre >140/90 or chest pain, shortness of breath, heavy bleeding sever pain go to ER Discharge Diagnosis Prov Other: Tachycarida Hypertension Contraception after Delivery: Not Planning to Use
[2018-05-25 08:25] LABS: ALB/GLOB RATIO 1.1 (1.0-2.1); ALBUMIN 3.4 g/dL (3.5-5.0); ALT/SGPT 18 U/L (9-52); AST/SGOT 27 U/L (14-36); BLOOD UREA NITROGEN 7 mg/dL (7-17); CALCIUM 8.9 mg/dl (8.6-10.4); GFR AFRICAN-AMERICAN > 60; GFR NON-AFRICAN AMERICAN > 60
--- NOTE | 2018-05-25 08:36 | CP.PCM.PN ---
Subjective - Date & Time of Evaluation Date of Evaluation: 05/25/18 Time of Evaluation: 08:34 - Subjective Subjective: Pt willam and examined at bedside. Pt s/p delivey. Pt denies chest pain, SOB, headache, dizziness, depression, f/c, n/v Objective - Vital Signs/Intake and Output Vital Signs (last 24 hours): Temp Pulse Resp BP Pulse Ox 97.9 F 117 H 18 142/82 98 05/24/18 16:00 05/24/18 16:00 05/24/18 16:00 05/24/18 16:00 05/24/18 16:00 - Medications Medications: Current Medications Acetaminophen (Tylenol 325mg Tab) 650 mg PO Q6 PRN PRN Reason: Pain, moderate (4-7) Docusate Sodium (Colace) 100 mg PO BID [facility] Last Admin: 05/24/18 17:59 Dose: 100 mg Ferrous Sulfate (Feosol) 325 mg PO DAILY [facility] Last Admin: 05/24/18 09:35 Dose: 325 mg Labetalol HCl (Trandate) 100 mg PO BID [facility] Last Admin: 05/24/18 17:58 Dose: 100 mg Multivit/Folic Acid/Iron () 1 tab PO DAILY [facility] Last Admin: 05/24/18 09:33 Dose: 1 tab Sennosides (Senokot Tab) 17.2 mg PO HS [facility] Last Admin: 05/24/18 21:19 Dose: 17.2 mg Simethicone (Mylicon Chew Tab) 80 mg PO QID [facility] Last Admin: 05/24/18 21:19 Dose: 80 mg - Labs Labs: 05/24/18 11:13 05/25/18 07:59 PT 10.8 SECONDS (9.7-12.2) 05/22/18 08:58 INR 1.0 05/22/18 08:58 APTT 28 SECONDS (21-34) 05/22/18 08:58 Assessment and Plan - Assessment and Plan (Free Text) Assessment: - Constitutional Appears: Non-toxic, No Acute Distress - Head Exam Head Exam: ATRAUMATIC, NORMAL INSPECTION, NORMOCEPHALIC - Eye Exam Eye Exam: EOMI, Normal appearance - ENT Exam ENT Exam: Mucous Membranes Moist - Neck Exam Neck Exam: Full ROM, Normal Inspection - Respiratory Exam Respiratory Exam: Clear to Ausculation Bilateral, NORMAL BREATHING PATTERN. absent: Accessory Muscle Use, Chest Wall Tenderness - Cardiovascular Exam Cardiovascular Exam: Tachycardia, REGULAR RHYTHM, +S1, +S2. absent: Murmur - GI/Abdominal Exam GI & Abdominal Exam: Soft, Normal Bowel Sounds. absent: Distended - Extremities Exam Extremities Exam: Normal Capillary Refill, Pedal Edema. absent: Calf Tenderness - Neurological Exam Neurological Exam: Alert, Awake, Normal Gait, Oriented x3 - Psychiatric Exam Psychiatric exam: Normal Affect, Normal Mood - Skin Skin Exam: Intact, Normal Color, Warm Assessment and Plan - Assessment and Plan (Free Text) Assessment: Consult for 38 year old F with persistent hypertension and tachycardia, s/p c- sect 05/22/18 Hypertension -BP 142/91 -taken off labetalol 200mg IV BID -will resume labetalol at 100mg IV BID -vitals Q4 Tachycardia -HR 104 -f/u LE dopplers -echo 05/24 shows mild/mod tricuspid regurg -Vitals Q4 transaminitis -f/u am labs: trending down
[2018-05-25 09:06] VITALS: BP 141/83; PULSE 120
[2018-05-25] MEDS: Simethicone 80 mg Chewtab PO SCH (09:43)
[2018-05-25] MEDS: Prenatal Multivit/Folic Acid/Iron Tab PO SCH (09:43)
[2018-05-25 15:23] VITALS: TEMP 99
--- NOTE | 2018-05-26 15:59 | VASCLAB ---
Date of service: 05/24/2018 PROCEDURE: Lower Extremity Venous Duplex Exam. HISTORY: b/l le edema PRIORS: None. TECHNIQUE: Bilateral common femoral, femoral, popliteal and posterior tibial, peroneal and great saphenous veins were evaluated. Flow was assessed with color Doppler, compressibility, assessment of phasic flow and augmentation response. Report prepared by Reji Capone, BS, RVT FINDINGS: RIGHT: 1. Common Femoral Vein: 1.1. Compressibility - Fully compressible: Thrombus - None : Flow - Phasic: Augmentation -Normal: Reflux - None. 2. Femoral Vein: 2.1. Compressibility - Fully compressible: Thrombus - None : Flow - Phasic: Augmentation -Normal: Reflux - None. 3. Popliteal Vein: 3.1. Compressibility - Fully compressible: Thrombus - None : Flow - Phasic: Augmentation -Normal: Reflux - None. 4. Posterior Tibial Vein: 4.1. Compressibility - Fully compressible: Thrombus - None: Flow - Phasic: Augmentation -Normal: Reflux - None. 5. Peroneal Vein: 5.1. Compressibility - Fully compressible: Thrombus - None: Flow - Phasic: Augmentation -Normal: Reflux - None. 6. Great Saphenous Vein: 6.1. Compressibility - Fully compressible: Thrombus - None: Flow - Phasic: Augmentation - Normal: Reflux - None. LEFT: 1. Common Femoral Vein: 1.1. Compressibility - Fully compressible: Thrombus - None: Flow - Phasic: Augmentation -Normal: Reflux - None. 2. Femoral Vein: 2.1. Compressibility - Fully compressible: Thrombus - None: Flow - Phasic: Augmentation -Normal: Reflux - None. 3. Popliteal Vein: 3.1. Compressibility - Fully compressible: Thrombus - None : Flow - Phasic: Augmentation -Normal: Reflux - None. 4. Posterior Tibial Vein: 4.1. Compressibility - Fully compressible: Thrombus - None: Flow - Phasic: Augmentation -Normal: Reflux - None. 5. Peroneal Vein: 5.1. Compressibility - Fully compressible: Thrombus - None: Flow - Phasic: Augmentation -Normal: Reflux - None. 6. Great Saphenous Vein: 6.1. Compressibility - Fully compressible: Thrombus - None: Flow - Phasic: Augmentation - Normal: Reflux - None. OTHER FINDINGS: Right: None significant. Left: None significant. IMPRESSION: Right: No evidence of deep or superficial vein thrombosis of the right lower extremity. Normal valve function noted of the right side. Left: No evidence of deep or superficial vein thrombosis of the left lower extremity. Normal valve function noted of the left side.
== END 2018-05-25 11:15 | disposition home or self-care (01) | DRG 651 ==
LOC: C.EROB 15:10 → C.4D 17:05 → C.4M 05-22 15:37
PROVIDERS: ADMIT Obstetrics & Gynecology; ATTEND Obstetrics & Gynecology
PROC: 10D00Z1 Extraction of Products of Conception, Low, Open Approach (ICD-10-PCS; principal; 2018-05-20)
PROC: 3E0P7VZ Introduction of Hormone into Female Reproductive, Via Natural or Artificial Opening (ICD-10-PCS; 2018-05-20)
DX: O13.4 Gestational [pregnancy-induced] hypertension without significant proteinuria, complicating childbirth (principal); O76 Abnormality in fetal heart rate and rhythm complicating labor and delivery; D25.9 Leiomyoma of uterus, unspecified; O62.1 Secondary uterine inertia; O34.13 Maternal care for benign tumor of corpus uteri, third trimester; Z80.0 Family history of malignant neoplasm of digestive organs; Z3A.39 39 weeks gestation of pregnancy; Z37.0 Single live birth